=== PATIENT | male | born 1950 | race Two or more races ===

== ENCOUNTER 2017-01-08 13:10 | Day surgery (SDC) | payer OTHER ==
[~2017-01-08] VITALS: Ht 172.7 cm; Wt 71.1 kg
[2017-01-08] MEDS ORDERED: METFORMIN (14:58)
[2017-01-08] MEDS ORDERED: VITAMIN D (14:58)
[2017-01-08] MEDS ORDERED: CHOLESTEROL MED (14:58)
[2017-01-08] MEDS ORDERED: BP MED (14:58)
[2017-01-08] MEDS ORDERED: VITAMIN B (14:58)
[2017-01-08 14:59] VITALS: Ht 172.7 cm; Wt 71.1 kg
--- NOTE | 2017-01-08 17:36 | OPPN ---
Date/Time of Note Date/Time of Note DATE: 01/08/17 TIME: 17:33 Proc Note GI Procedure date: Jan 08, 2017 Pre-procedure Diagnosis * Colorectal cancer screening Post-procedure Diagnosis Assessment: * Normal colonic mucosa to cecum * Small internal hemorrhoids Plan: * High-fiber diet * Annual Hemoccult stool testing * Screening colonoscopy in 10 years Operation Performed * Colonoscopy to cecum Surgeon: MONY DONNELLY MD Anesthesia Type: moderate sedation (Versed 4 mg micrograms) Estimated blood loss: none Transfusion Required: no Specimen: none Grafts/Implants: none Complications: no Pt Condition post procedure: stable Disposition: PACU Procedure Description After informed consent, with the patient/relatives understanding the procedure, its indications and potential risks and complications, including but not limited to: Allergic reaction, bleeding, perforation, infection, and after all pertinent questions were answered to the patient's satisfaction, the patient/ relatives signed the witnessed informed consent. Following this, premedication was administered slowly IV push under careful cardiovascular and respiratory monitoring with pulse O[employer], automatic blood pressure, and cardiac monitor. Once the sedative effect was achieved, the patient was placed in the left lateral decubitus position, digital rectal examination was performed. The colonoscope was then introduced and advanced under visual control throughout all segments of the colon including: the rectum, sigmoid, descending colon, splenic flexure, transverse colon, hepatic flexure, ascending colon and finally reaching the cecum which was clearly identified by transillumination, finger indentation and the ileocecal valve. Careful examination of the mucosa of the lower gastrointestinal tract both on insertion as well as withdrawal of the instrument disclosed the following findings: PREPARATION QUALITY: [Adequate], RECTAL EXAM: The anorectal area was visualized examined and digital rectal examination performed with the following findings: No evidence of perirectal disease, no masses. COLONIC MUCOSA: The mucosa of all segments of the colon was carefully examined and showed the following findings: the examined mucosa appears within normal limits. There is no evidence of inflammatory changes, diverticular formation, polyps or other neoplasms, vascular malformation, or any other abnormality. Small internal hemorrhoids The instrument was then withdrawn, the patient tolerated the procedure well and was transferred out of the Endoscopy Suite awake and in good condition to continue recovery under observation. MONY DONNELLY MD Jan 08, 2017 17:36
[2017-01-08 17:55] VITALS: BP 121/77; RESP 14
[2017-01-08] MEDS ORDERED: FENTAnyl 50 MCG/ML VIAL ONE (17:57)
[2017-01-08] MEDS ORDERED: MIDAZOLAM 1 MG/ML 2 ML INJ ONE ×2 (17:58)
== END 2017-01-08 18:08 | disposition home or self-care (01) ==
LOC: GIL 13:10
PROVIDERS: ATTEND Internal Medicine Gastroenterology
DX: Z12.11 Encounter for screening for malignant neoplasm of colon (principal); K64.8 Other hemorrhoids; E11.9 Type 2 diabetes mellitus without complications; E78.00 Pure hypercholesterolemia, unspecified
CPT/HCPCS: 45378; 82962; J2250; J3010; Z7610